=== PATIENT | female | born 1975 | race American Indian/Alaskan Native ===

== ENCOUNTER 2016-07-27 19:38 | Emergency (ER) | payer OTHER ==
[2016-07-27 19:44] VITALS: BP 110/79; PULSE 70; RESP 18; TEMP 98.5; O2SAT 100
[2016-07-27] MEDS ORDERED: Oxycodone/Acetaminophen 5/325 mg Tab PO STA (19:50)
--- NOTE | 2016-07-27 19:59 | ED PDOC ---
Lower Extremity Pain/Injury Time Seen by Provider: 07/27/16 19:41 Chief Complaint (Nursing): Lower Extremity Problem/Injury Chief Complaint (Provider): Left Foot and Knee Injury/ Lower Back Injury History Per: Patient History/Exam Limitations: no limitations Onset/Duration Of Symptoms: Hrs Current Symptoms Are (Timing): Still Present Additional Complaint(s): 19:41 Pito Curiel is a 40 year old female that presents to the ED with a chief complaint of left foot and left knee pain accompanied by lower back pain she began to experience as a direct result of a fall earlier today. Patient states that she was at her home when she was going down her steps, at which point one of the steps "broke off." She then reports falling and injuring her left knee and left foot, as well as "twisted [her] lower back" while falling. She denies any head injury, chest pain, abdominal pain, nausea, or vomiting. MDM: Navjot Lam Past Medical History Reviewed: Historical Data, Nursing Documentation, Vital Signs Vital Signs: Last Vital Signs Temp 98.5 F 07/27/16 19:41 Pulse 70 07/27/16 19:41 Resp 18 07/27/16 19:41 BP 110/79 07/27/16 19:41 Pulse Ox 100 07/27/16 19:41 - Surgical History Surgical History: Appendectomy - Family History Family History: States: Unknown Family Hx - Home Medications Home Medications: Ambulatory Orders Medication Instructions Recorded Tramadol HCl [Ultram] 50 mg PO BID PRN #14 tablet 07/27/16 - Allergies Allergies/Adverse Reactions: Allergies Allergy/AdvReac Type Severity Reaction Status Date / Time No Known Allergies Allergy Verified 07/27/16 19:43 Review of Systems Constitutional: Negative for: Other (denies head injury) Cardiovascular: Negative for: Chest Pain Gastrointestinal: Negative for: Nausea, Vomiting, Abdominal Pain Musculoskeletal: Positive for: Back Pain (lower back pain), Leg Pain (left knee pain), Foot Pain (left foot pain) Physical Exam - Reviewed Nursing Documentation Reviewed: Yes Vital Signs Reviewed: Yes - Physical Exam Appears: Positive for: Non-toxic, No Acute Distress Head Exam: Positive for: ATRAUMATIC, NORMOCEPHALIC Skin: Positive for: Normal Color, Warm Cardiovascular/Chest: Positive for: Regular Rate, Rhythm, Chest Non Tender. Negative for: Murmur Respiratory: Positive for: Normal Breath Sounds. Negative for: Wheezing Pulses-Dorsalis Pedis (L): 2+ Pulses-Dorsalis Pedis (R): 2+ Gastrointestinal/Abdominal: Positive for: Soft. Negative for: Tenderness Back: Negative for: Normal Inspection (minimal paralumbar tenderness bilaterally to lower back), L CVA Tenderness, R CVA Tenderness, Vertebral Tenderness Extremity: Positive for: Tenderness (mild tenderness to left knee; no left hip, left ankle, or left leg tenderness.). Negative for: Deformity, Swelling Neurologic/Psych: Positive for: Alert, Oriented - ECG O2 Sat by Pulse Oximetry: 100 (RA) Pulse Ox Interpretation: Normal - Radiology X-Ray: Interpreted by Me (Knee, foot, LS spine x-ray) X-Ray Interpretation: No Acute Disease - Progress ED Course And Treament: Knee and foot nagela wrapped. Crutches provided. Medical Decision Making Medical Decision Makin:50 Initial Impression: Left Leg Pain, Left Knee Pain, Lower Back Pain Initial Plan: * X-Ray Left Knee * X-Ray Left Foot * X-Ray LS Spine AP/Lat * Oxycodone 1 tab PO * Reevaluation Scribe Attestation: Documented by Mery Morales, acting as a scribe for Jerrod Rubin PA-C. Provider Scribe Attestation: All medical record entries made by the Scribe were at my direction and personally dictated by me. I have reviewed the chart and agree that the record accurately reflects my personal performance of the history, physical exam, medical decision making, and the department course for this patient. I have also personally directed, reviewed, and agree with the discharge instructions and disposition. Disposition - Clinical Impression Clinical Impression: Knee sprain, Foot sprain, Low back pain - Patient ED Disposition Is Patient to be Admitted: No - Disposition Disposition: Routine/Home Disposition Time: 21:55 Condition: STABLE Prescriptions: Tramadol HCl [Ultram] 50 mg PO BID PRN #14 tablet PRN Reason: Other Instructions: Sprain (ED), Crutch Instructions (ED), RICE Therapy (ED) Print Language: UKRAINIAN
[2016-07-27] MEDS ORDERED: Oxycodone/Acetaminophen 5/325 mg Tab ONE (20:09)
--- NOTE | 2016-07-28 12:09 | RAD ---
PROCEDURE: Left Knee Radiographs. HISTORY: Posttraumatic pain COMPARISON: None. FINDINGS: BONES: Normal. No fracture. JOINTS: Normal. No osteoarthritis. JOINT EFFUSION: None. OTHER FINDINGS: None. IMPRESSION: No acute findings related to/accounting for the clinical presentation.
--- NOTE | 2016-07-28 12:09 | RAD ---
PROCEDURE: Left Foot Radiographs. HISTORY: Trauma. Anatomic area of interest: 5th digit distal tuft region COMPARISON: 05/26/2011. FINDINGS: BONES: Normal. No fracture. JOINTS: Normal. SOFT TISSUES: Normal. OTHER FINDINGS: None. IMPRESSION: No acute findings related to/accounting for the clinical presentation.
--- NOTE | 2016-07-28 12:10 | RAD ---
PROCEDURE: Radiographs of the Lumbar Spine. HISTORY: trauma COMPARISON: No prior. FINDINGS: BONES: Normal alignment. No listhesis. No fracture. DISC SPACES: Unremarkable. OTHER FINDINGS: None. IMPRESSION: No acute findings related to/accounting for the clinical presentation.
== END 2016-07-27 22:21 | disposition home or self-care (01) ==
LOC: H.ER 19:38
DX: S83.92XA Sprain of unspecified site of left knee, initial encounter (principal); S99.922A Unspecified injury of left foot, initial encounter; M54.5 Low back pain; Y92.008 Other place in unspecified non-institutional (private) residence as the place of occurrence of the external cause; W10.9XXA Fall (on) (from) unspecified stairs and steps, initial encounter

== ENCOUNTER 2017-01-15 07:20 | Emergency (ER) | payer OTHER ==
[2017-01-15 07:38] VITALS: BP 158/83; PULSE 107; RESP 16; TEMP 98.4; O2SAT 98
[2017-01-15 07:39] VITALS: BMI 38.8
== END 2017-01-15 09:01 | disposition home or self-care (01) ==
LOC: H.ER 07:20
DX: S63.206A Unspecified subluxation of right little finger, initial encounter (principal); W22.8XXA Striking against or struck by other objects, initial encounter; Y92.89 Other specified places as the place of occurrence of the external cause
CPT/HCPCS: 29130; 73120; 73140; 81025; 96372; 99283; J1885

== ENCOUNTER 2017-01-20 16:29 | Emergency (ER) | payer OTHER ==
[2017-01-20 16:29] VITALS: BMI 38.8
[2017-01-20 16:54] VITALS: BP 120/77; PULSE 73; RESP 16; TEMP 99.1; O2SAT 99
--- NOTE | 2017-01-20 17:14 | ED PDOC ---
Lower Extremity Pain/Injury Time Seen by Provider: 01/20/17 16:45 Chief Complaint (Nursing): Lower Extremity Problem/Injury Chief Complaint (Provider): Right foot swelling and pain History Per: Patient History/Exam Limitations: no limitations Onset/Duration Of Symptoms: Days (x5) Current Symptoms Are (Timing): Still Present Additional History Per: Prior Records Additional Complaint(s): Pito is a 41 y/o female who presents to the ED complaining of right foot pain. She initially injured the right foot during a fall in July 2016. Patient was seen here on 01/15/17 for pinky finger dislocation and right knee abrasion, after [place]. At that time, her right foot was asymptomatic. On Friday, she noticed the right foot was painful and swollen. States she has difficulty bearing weight on the foot, and is unable to wear close-toed shoes for work due to the pain. Taking Motrin as needed for pain. Of note, patient reports she is currently in physical therapy for left- sided injuries sustained during her initial fall in July. PMD: Navjot Lam Past Medical History Reviewed: Historical Data, Nursing Documentation, Vital Signs Vital Signs: Last Vital Signs Temp 99.1 F 01/20/17 16:50 Pulse 73 01/20/17 16:50 Resp 16 01/20/17 16:50 BP 120/77 01/20/17 16:50 Pulse Ox 99 01/20/17 16:50 - Surgical History Surgical History: Appendectomy, - Family History Family History: States: Unknown Family Hx - Social History Current smoker - smoking cessation education provided: No Alcohol: None Drugs: Denies - Home Medications Home Medications: Ambulatory Orders Medication Instructions Recorded Tramadol HCl [Ultram] 50 mg PO BID PRN #14 tablet 07/27/16 - Allergies Allergies/Adverse Reactions: Allergies Allergy/AdvReac Type Severity Reaction Status Date / Time No Known Allergies Allergy Verified 07/27/16 19:43 Review of Systems ROS Statement: Except As Marked, All Systems Reviewed And Found Negative Musculoskeletal: Positive for: Foot Pain (Right) Physical Exam - Reviewed Nursing Documentation Reviewed: Yes Vital Signs Reviewed: Yes - Physical Exam Appears: Positive for: Well, Non-toxic, No Acute Distress Head Exam: Positive for: ATRAUMATIC, NORMAL INSPECTION, NORMOCEPHALIC Skin: Positive for: Normal Color, Warm, Dry Eye Exam: Positive for: Normal appearance Neck: Positive for: Normal Respiratory: Negative for: Respiratory Distress Extremity: Positive for: Tenderness, Swelling (to the right dorsal mid foot) Neurologic/Psych: Positive for: Alert, Oriented - ECG O2 Sat by Pulse Oximetry: 99 (RA) Pulse Ox Interpretation: Normal Medical Decision Making Medical Decision Making: Time: 17:09 Initial Plan: --Patient offered Motrin, and declined. --Pending X-Ray Right Foot Time: 18:00 --X-Ray reviewed and interpreted by me, and is negative --Patient is medically stable for discharge. HEIDY bandage will be applied and patient will be provided with crutches/instructions for use. --Counseling was provided and all questions were answered regarding diagnosis and need for follow up with PMD. Scribe Attestation: Documented by Angelica Lea, acting as a scribe for Emelia Manning PA-C Provider Scribe Attestation: All medical record entries made by the Scribe were at my direction and personally dictated by me. I have reviewed the chart and agree that the record accurately reflects my personal performance of the history, physical exam, medical decision making, and the department course for this patient. I have also personally directed, reviewed, and agree with the discharge instructions and disposition. Disposition - Clinical Impression Clinical Impression: Foot pain - Patient ED Disposition Is Patient to be Admitted: No Counseled Patient/Family Regarding: Diagnosis, Need For Followup - Disposition Referrals: Podiatry Clinic [Outside] Disposition: Routine/Home Disposition Time: 18:15 Condition: GOOD Additional Instructions: Ice, elevation, motrin. Instructions: Swollen Joint (ED) Forms: [employer] (Bulgarian)
--- NOTE | 2017-01-20 18:01 | RAD ---
PROCEDURE: Right Foot Radiographs. HISTORY: pain, dorsal midfoot, fell 5 days ago COMPARISON: None. FINDINGS: BONES: Normal. No fracture. JOINTS: Normal. SOFT TISSUES: Normal. OTHER FINDINGS: None. IMPRESSION: No acute findings related to/accounting for the clinical presentation. Please note: No preliminary report/ innterpretation of this examination provided by emergency department personnel.
== END 2017-01-20 18:42 | disposition home or self-care (01) ==
LOC: H.ER 16:29
DX: M79.671 Pain in right foot (principal)